=== PATIENT | female | born 1950 ===

== ENCOUNTER 2019-02-15 06:36 | Day surgery (SDC) | payer OTHER ==
[~2019-02-15 06:36] MED LIST: COZAAR25 MG PO
[2019-02-15] MEDS ORDERED: PERCOCET 5-3251 EACH PO (11:18)
== END 2019-02-15 13:25 | disposition home or self-care (01) ==
LOC: CIR.AMB 06:36
DX: E04.1 Nontoxic single thyroid nodule (principal)